=== PATIENT | female | born 1960 | race Caucasian/White ===

== ENCOUNTER 2020-07-18 10:00 | Outpatient (CLI) | payer OTHER | END 2020-07-18 20:42 | disposition home or self-care (01) | LOC: SMI 10:00 → EDBD 10:00 → SMI 20:42 | PROVIDERS: ATTEND Orthopaedic Surgery | DX: M47.816 Spondylosis without myelopathy or radiculopathy, lumbar region (principal); K76.89 Other specified diseases of liver | CPT/HCPCS: 72148 ==